=== PATIENT | male | born 1930 | race Caucasian/White ===

== ENCOUNTER → 2018-06-13 | Outpatient (CLI) | payer OTHER, BC | LOC: NUC 08:07 | DX: I25.10 Atherosclerotic heart disease of native coronary artery without angina pectoris (principal); R06.09 Other forms of dyspnea; I10 Essential (primary) hypertension; E11.9 Type 2 diabetes mellitus without complications; Z87.891 Personal history of nicotine dependence ==

== ENCOUNTER → 2018-06-16 | Outpatient (CLI) | payer OTHER, BC ==
--- NOTE | 2018-06-16 11:50 | 2DMMODE ---
[facility] [place] [address] 2 D/M-MODE ECHOCARDIOGRAM Name: JOSE RAE Room #: REG CL [facility]#: [id number] ������������� Admission: 06/16/18 ������������� Attend Phys: Trever Nicolas MD Discharge: ��� ������������� ��� Date of : 32 Date of Service: 06/16/18 1150 �� Report #: [id number] �������� ��������������������������������������������[id number] THIS REPORT FOR: //name// APPROVED REPORT Study performed: 06/16/2018 10:28:12 EXAM: Comprehensive 2D, Doppler, and color-flow Echocardiogram Patient Location: Out-Patient Status: routine BSA: 2.02 HR: 68 bpm BP: 140/70 mmHg Other Information Study Quality: Adequate Indications Dyspnea Hypertension/HDD 2D Dimensions RVDd: 29.36 mm IVSd: 14.28 (7-11mm) LVOT Diam: 20.47 (18-24mm) LVDd: 35.02 mm PWd: 13.90 (7-11mm) Ascending Ao: 33.75 (22-36mm) LVDs: 25.07 (25-40mm) Aortic Root: 33.36 mm IVC: 18.00 mm Volumes Left Atrial Volume (Systole) Single Plane 4CH: 61.40 mL Single Plane 2CH: 60.46 mL LA ESV Index: 32.00 mL/m2 Aortic Valve AoV Peak Feliberto.: 1.76 m/s AO Peak Gr.: 12.39 mmHg LVOT Max P.53 mmHg LVOT Max V: 0.94 m/s AMARIS Vmax: 1.76 cm2 AI Vmax: 3.70 m/s AI [place]: 2.68 m/s2 AI PHT: 401.00 ms Mitral Valve [facility] [address] [place] [address] 2 D/M-MODE ECHOCARDIOGRAM Name: JOSE RAE Room #: REG [facility]#: [id number] ������������� Admission: 06/16/18 ������������� Attend Phys: Trever Nicolas MD Discharge: ��� ������������� ��� Date of : 32 Date of Service: 06/16/18 1150 �� Report #: [id number] �������� ��������������������������������������������[id number] E/A Ratio: 1.0 MV Decel. Time: 176.52 ms MV E Max Feliberto.: 1.06 m/s MV A Feliberto.: 1.02 m/s MV PHT: 51.19 ms IVRT: 100.35 ms Pulmonary Valve PV Peak Feliberto.: 0.98 m/s PV Peak Gr.: 3.82 mmHg Pulmonary Vein P Vein S: 0.56 m/s P Vein D: 0.48 m/s P Vein S/D Ratio: 1.17 Tricuspid Valve TR Peak Feliberto.: 2.61 m/s RAP Estimate: 5.00 mmHg TR Peak Gr.: 27.27 mmHg PA Pressure: 32.00 mmHg Left Ventricle The left ventricle is normal size. Mild concentric left ventricular hypertrophy. The left ventricular systolic function is normal. The left ventricular ejection fraction is within the normal range. LVEF is 60%. Moderate diastolic dysfunction is present (pseudonormal filling). Right Ventricle The right ventricle is normal size. The right ventricular systolic function is normal. Atria The left atrium size is normal. The right atrium size is normal. Aortic Valve Mild aortic valve sclerosis. Mild aortic regurgitation. There is no aortic valvular stenosis. Mitral Valve The mitral valve is normal in structure. Mild mitral regurgitation. No evidence of mitral valve stenosis. Tricuspid Valve The tricuspid valve is normal in structure. Mild tricuspid regurgitation. PAP is estimated at 32 mmHg. [facility] [address] [place] [address] 2 D/M-MODE ECHOCARDIOGRAM Name: JOSE RAE Room #: REG [facility]#: [id number] ������������� Admission: 06/16/18 ������������� Attend Phys: Trever Nicolas MD Discharge: ��� ������������� ��� Date of : 32 Date of Service: 06/16/18 1150 �� Report #: [id number] �������� ��������������������������������������������[id number] Pulmonic Valve The pulmonary valve is normal in structure. There is no pulmonic valvular regurgitation. Great Vessels The aortic root is normal in size. IVC is normal in size and collapses >50% with inspiration. Pericardium There is no pericardial effusion. <Conclusion> The left ventricle is normal size. Mild concentric left ventricular hypertrophy. The left ventricular systolic function is normal. Moderate diastolic dysfunction is present (pseudonormal filling). The right ventricle is normal size. The left atrium size is normal. Mild aortic valve sclerosis. Mild aortic regurgitation. Mild mitral regurgitation. Mild tricuspid regurgitation. PAP is estimated at 32 mmHg. ��������������������������������������������� <ELECTRONICALLY SIGNED> ���������������������������������������� By: Trever Nicolas MD ��������������������������������������������� 06/16/18 1150 1150 1150 Trever Nicolas MD /INF
== END ==
LOC: CV 10:05
DX: I73.9 Peripheral vascular disease, unspecified (principal); R06.09 Other forms of dyspnea; I70.8 Atherosclerosis of other arteries; H34.9 Unspecified retinal vascular occlusion